=== PATIENT | female | born 1990 | race Caucasian/White ===

== ENCOUNTER 2019-06-29 11:38 | Inpatient (IN) | payer OTHER ==
[2019-06-29] MEDS ORDERED: Butorphanol Tartrate 1 MG/ML VIAL SLOW IVP PRN (11:58)
[2019-06-29] MEDS ORDERED: Ondansetron PF 4 MG/2 ML Vial IVP PRN (11:58)
[2019-06-29] MEDS ORDERED: hydrALAZINE 20 MG/ML VIAL SLOW IVP PRN (11:58)
[2019-06-29] MEDS ORDERED: Promethazine HCl 25 MG/ML VIAL IM PRN (11:58)
[2019-06-29] MEDS ORDERED: Acetaminophen 500 MG TAB PO PRN (11:58)
[2019-06-29] MEDS ORDERED: HYDROcodone/Acetaminophen 5/325 mg Tablet PO PRN (11:58)
[2019-06-29] MEDS ORDERED: NS / Oxytocin 40 units/1000ml 1,000 ML IV PRN (11:58)
[2019-06-29] MEDS ORDERED: Zolpidem Tartrate 5 MG TAB PO PRN (11:58)
[2019-06-29] MEDS ORDERED: Ibuprofen 800 MG TAB PO PRN (11:58)
[2019-06-29] MEDS ORDERED: Lidocaine 1% (PF) 30 ML VIAL SC PRN (11:58)
[2019-06-29] MEDS ORDERED: Calcium Gluc 4.6 MEQ/10 ML (100 MG/ML) SLOW IVP PRN (11:58)
[2019-06-29] MEDS ORDERED: NS w/ Oxytocin 10 units 500 ML IV SCH (12:00)
[2019-06-29] MEDS ORDERED: Labetalol HCl 100 MG/20 ML VIAL SLOW IVP PRN (12:01)
[2019-06-29 12:55] LABS: Hemoglobin 12.4 g/dL (12.0-16.0); Mean Corpuscular HGB CONC 35.3 g/dL (32.0-36.0); Mean Corpuscular Volume 84.9 fL (78.0-98.0); Platelet Count 179 thou/uL (130-400); RBC Distribution Width 13.8 % (11.5-14.5); Red Blood Cell (RBC) Count 4.15 mill/uL (4.20-5.40); White Blood Cell (WBC) Count 8.7 thou/uL (4.8-10.8)
[2019-06-29 13:15] LABS: ALT (SGPT) 19 U/L (8-55); AST (SGOT) 18 U/L (5-34); Albumin 3.3 g/dL (3.5-5.0); Alkaline Phosphatase 168 U/L (40-150); Anion Gap 9 mmol/L (10-20); BUN (Urea Nitrogen) 5 mg/dL (7.0-18.7); Bilirubin, Total 0.2 mg/dL (0.2-1.2); Calc. Creatinine Clearance 0 mL/min (70-130); Calcium 9.5 mg/dL (7.8-10.44); Carbon Dioxide 23 mmol/L (22-29); Chloride 104 mmol/L (98-107); Estimated GFR-MDRD 90; Globulin 3.4 g/dL (2.4-3.5); Glucose 83 mg/dL (70-105); Potassium 4.2 mmol/L (3.5-5.1); Protein, Total 6.7 g/dL (6.0-8.3); Sodium 132 mmol/L (136-145)
[2019-06-29 13:33] LABS: HBSAg Index 0.14 S/CO (0-0.99); Hep B Surf Ag Non-Reactive S/CO (NonReactive); Syphilis Antibody Nonreactive (Nonreactive); Syphilis Antibody Index 0.03 S/CO (<1.00 Non-Reactive)
[2019-06-29] MEDS: Misoprostol 100 MCG TAB VAG SCH ×3 (13:56→20:33)
[2019-06-29] MEDS: Lactated Ringer's 1,000 ML IV SCH (14:01)
[2019-06-29 14:44] VITALS: BMI 38.9
[2019-06-29] MEDS ORDERED: Bupivacaine 0.25% HCL 30 ML VIAL ONE (22:00)
[2019-06-30] MEDS: Misoprostol 100 MCG TAB VAG SCH ×3 (05:05→19:33)
[2019-06-30] MEDS ORDERED: Fentanyl 4 mcg/Bup 0.1% Cadd 100 ML ONE (08:18)
[2019-06-30] MEDS: Lactated Ringer's 1,000 ML IV SCH ×2 (08:46→10:35)
[2019-06-30] MEDS ORDERED: Fentanyl 100 MCG/2 ML VIAL ONE (08:56)
[2019-06-30] MEDS ORDERED: Fentanyl 100 MCG/2 ML VIAL EPIDURAL PRN (09:15)
[2019-06-30] MEDS ORDERED: Promethazine HCl 25 MG/ML VIAL IM PRN (11:02)
[2019-06-30] MEDS ORDERED: ePHEDrine/0.9% NaCl/PF SYRINGE 50 mg/10 ml SLOW IVP PRN (11:02)
[2019-06-30] MEDS ORDERED: Naloxone HCl 0.4 mg/ml Vial IVP PRN ×2 (11:02)
[2019-06-30] MEDS ORDERED: diphenhydrAMINE 50 MG/ML VIAL IVP PRN (11:02)
[2019-06-30] MEDS ORDERED: Acetaminophen 325 MG TAB PO PRN (11:02)
[2019-06-30] MEDS ORDERED: Lactated Ringer's 500 ML IV PRN (11:02)
[2019-06-30] MEDS ORDERED: Ondansetron PF 4 MG/2 ML Vial IVP PRN ×2 (11:02→14:29)
[2019-06-30] MEDS ORDERED: Communication Order-Pharmacy FS SCH (11:15)
[2019-06-30] MEDS ORDERED: Fentanyl 4 mcg/Bupivacaine 0.1% Cassette 100 ML EPIDURAL SCH (11:15)
[2019-06-30] MEDS ORDERED: NS / Oxytocin 40 units/1000ml 1,000 ML ONE (12:09)
[2019-06-30] MEDS ORDERED: Lidocaine 1% (PF) 30 ML VIAL ONE (12:09)
[2019-06-30] MEDS ORDERED: Misoprostol 200 MCG TAB ONE (12:10)
[2019-06-30] MEDS ORDERED: Varicella virus, LIVE 0.5 ML VIAL SC ONE (14:29)
[2019-06-30] MEDS ORDERED: Preparation H Ointment 28 GM TUBE PR PRN (14:29)
[2019-06-30] MEDS ORDERED: Bisacodyl 10 MG SUPP PR PRN (14:29)
[2019-06-30] MEDS ORDERED: Methylergonovine 0.2 MG/ML VIAL IM PRN (14:29)
[2019-06-30] MEDS ORDERED: Adacel (T-DAP) 0.5 ML SYRINGE IM ONE (14:29)
[2019-06-30] MEDS ORDERED: Measles/Mumps/Rubella 10 MCG/0.5 ML VIAL SC ONE (14:29)
[2019-06-30] MEDS ORDERED: diphenhydrAMINE 25 MG CAP PO PRN (14:29)
[2019-06-30] MEDS ORDERED: hydrALAZINE 20 MG/ML VIAL SLOW IVP PRN (14:29)
[2019-06-30] MEDS ORDERED: Misoprostol 200 MCG TAB VAG PRN (14:29)
[2019-06-30] MEDS ORDERED: Lanolin Ointment 7 GM TUBE TOP PRN (14:29)
[2019-06-30] MEDS ORDERED: Benzocaine-Menthol 82.5 ML CAN TOP PRN (14:29)
[2019-06-30] MEDS ORDERED: Milk Of Magnesia 30 ML UDCUP PO PRN (14:29)
[2019-06-30] MEDS ORDERED: NS / Oxytocin 40 units/1000ml 1,000 ML IV SCH (14:30)
--- NOTE | 2019-06-30 14:33 | PDOC.OPDEL ---
OB Operative/Delivery Note Delivery Dr/Surgeon: Samir/Thang Pre-Delivery Diagnosis: medically indicated induction Procedure/Post Delivery Dx: spontaneous vaginal delivery Weeks gestation: 37 Anesthesia: epidural - Findings A Sex: male ("Albus") Weight: 7 lb 11 oz - 1 min: 9 - 5 min: 9 - Additional Findings/Plan Placenta delivered: spontaneous Repaired Obstetrical Laceration: 2nd degree Estimated blood loss: QBL 215 ml Compilations/Other Findings: Mild shoulder dystocia delivered with McRobert's maneuver, tight nuchal cord x 1 Post delivery plan: routine recovery
[2019-06-30] MEDS ORDERED: Zolpidem Tartrate 5 MG TAB PO PRN (21:22)
[2019-06-30] MEDS ORDERED: traMADol HCl 50 MG TAB PO PRN ×2 (21:22)
[2019-06-30] MEDS: Docusate Calcium (SURFAK) 240 MG CAP PO SCH (21:24)
[2019-06-30] MEDS: Ibuprofen 800 MG TAB PO SCH (21:24)
--- NOTE | 2019-07-01 05:27 | PDOC.PP ---
Post Progress Note Post Day #: 1 Subjective: Patient doing well. No significant overnight events. Reports is going well. Lochia a little more than a period. PO intake tolerated: yes Flatus: yes Ambulation: yes Vital Signs (12 hours) Temp Pulse Resp BP BP Pulse Ox 07/01/19 04:30 98.0 F 72 20 108/66 99 07/01/19 00:05 98.2 F 72 20 118/64 99 06/30/19 20:35 98 06/30/19 19:52 98.5 F 84 20 116/67 98 06/30/19 19:01 78 20 119/66 96 06/30/19 17:38 97.7 F 80 16 132/64 98 Weight Weight 99.79 kg - Physical Examination General: NAD Cardiovascular: RRR Respiratory: non-labored breathing Abdominal: + bowel sounds, lochia (slightly more bleeding than a period), no distention, appropriately TTP Fundus firm & at: at umbilicus Skin: no rash Neurological: no gross focal deficits Psychiatric: A&Ox3, normal affect Result Diagrams: 06/29/19 12:45 06/29/19 12:45 Additional Labs: Post Labs Blood Type O POSITIVE 06/29/19 14:18 Hep Bs Antigen Non-Reactive S/CO (NonReactive) 06/29/19 12:45 (1) Gestational HTN Code(s): O13.9 - GESTATIONAL HTN W/O SIGNIFICANT PROTEINURIA, UNSP TRIMESTER Status: Acute (2) Vaginal delivery Code(s): O80 - ENCOUNTER FOR FULL-TERM UNCOMPLICATED DELIVERY Status: Acute - Assessment/Plan Routine PP care - PPD #1, G1 - Routine care - Encourage ambulation - Continue - Rh positive Gestational HTN - BP's all WNL - No elevated BP's since being on PP unit Dispo: Patient progressing well. Plan for d/c home tomorrow.
[2019-07-01] MEDS: Ibuprofen 800 MG TAB PO SCH ×3 (06:11→22:21)
[2019-07-01] MEDS: Prenatal Vitamin 1 TAB PO SCH (08:20)
[2019-07-01] MEDS: Docusate Calcium (SURFAK) 240 MG CAP PO SCH ×2 (08:20→22:21)
[2019-07-01] MEDS: Ferrous Sulfate 325 MG TAB PO SCH ×3 (08:20→17:11)
[2019-07-01] MEDS: Lactated Ringer's 1,000 ML IV SCH (19:06)
--- NOTE | 2019-07-02 05:52 | PDOC.PP ---
Post Progress Note Post Day #: PPD2 Subjective: No c/o, ready for home. PO intake tolerated: yes Flatus: yes Ambulation: yes Vital Signs (12 hours) Temp Pulse Resp BP Pulse Ox 07/02/19 03:17 98.1 F 79 18 120/73 98 07/01/19 23:54 97.9 F 88 18 128/65 99 07/01/19 19:55 98.6 F 90 18 128/78 100 Weight Weight 99.79 kg - Physical Examination General: NAD Respiratory: non-labored breathing Extremities: negative homans (B) Neurological: no gross focal deficits Psychiatric: normal affect Result Diagrams: 06/29/19 12:45 06/29/19 12:45 Additional Labs: Post Labs Blood Type O POSITIVE 06/29/19 14:18 Hep Bs Antigen Non-Reactive S/CO (NonReactive) 06/29/19 12:45 - Assessment/Plan Dc home, BPs look good since delivery. Precautions. RTC with Dr. Desir in 6 weeks.
[2019-07-02] MEDS: Ibuprofen 800 MG TAB PO SCH ×2 (05:55→15:49)
[2019-07-02] MEDS: Ferrous Sulfate 325 MG TAB PO SCH (09:11)
[2019-07-02] MEDS: Docusate Calcium (SURFAK) 240 MG CAP PO SCH (09:11)
[2019-07-02] MEDS: Prenatal Vitamin 1 TAB PO SCH (09:11)
[2019-07-02 10:01] VITALS: BP 124/69; TEMP 98.6
== END 2019-07-02 15:51 | disposition home or self-care (01) | DRG 807 ==
LOC: L&D/OP 11:38 → L&D 11:52 → 3SE 06-30 17:51
PROVIDERS: ADMIT Obstetrics & Gynecology; ATTEND Obstetrics & Gynecology
PROC: 10E0XZZ Delivery of Products of Conception, External Approach (ICD-10-PCS; principal; 2019-06-30)
PROC: 0KQM0ZZ Repair Perineum Muscle, Open Approach (ICD-10-PCS; 2019-06-30)
PROC: 3E033VJ Introduction of Other Hormone into Peripheral Vein, Percutaneous Approach (ICD-10-PCS; 2019-06-30)
PROC: 3E0P7VZ Introduction of Hormone into Female Reproductive, Via Natural or Artificial Opening (ICD-10-PCS; 2019-06-30)
PROC: 10907ZC Drainage of Amniotic Fluid, Therapeutic from Products of Conception, Via Natural or Artificial Opening (ICD-10-PCS; 2019-06-30)
DX: O13.4 Gestational [pregnancy-induced] hypertension without significant proteinuria, complicating childbirth (principal); Z37.0 Single live birth; O66.0 Obstructed labor due to shoulder dystocia; O69.1XX0 Labor and delivery complicated by cord around neck, with compression, not applicable or unspecified; Z3A.37 37 weeks gestation of pregnancy; O70.1 Second degree perineal laceration during delivery
CPT/HCPCS: 36415; 51702; 80053; 81003; 85027; 86780; 86850; 86900; 86901; 87340; 90707; 90715; 90716; J2001; J2590; J3010; S0020